=== PATIENT | female | born 1980 | race American Indian/Alaskan Native ===

== ENCOUNTER 2020-04-29 10:48 | Outpatient (CLI) | payer OTHER | END 2020-04-29 12:16 | disposition home or self-care (01) | LOC: NST 10:48 | PROVIDERS: ATTEND Specialist | DX: Z34.83 Encounter for supervision of other normal pregnancy, third trimester (principal) ==

== ENCOUNTER 2020-05-05 21:10 | Inpatient (IN) | payer OTHER ==
[~2020-05-05] VITALS: Ht 154.9 cm; Wt 2680.0 kg
[2020-05-05] MEDS ORDERED: CHILDREN'S ASPI81 MG PO (22:04)
[2020-05-05] MEDS ORDERED: IRON325 MG PO (22:04)
[2020-05-05] MEDS ORDERED: PRENATAL TABLE1 EAC1 PO (22:04)
== END 2020-05-09 16:45 | disposition home or self-care (01) | DRG 787 ==
LOC: LDR 21:10 → O/R 21:10 → OB/GYN 05-06 13:48
PROVIDERS: ADMIT Specialist; ATTEND Specialist
PROC: 4A1HXFZ Monitoring of Products of Conception, Cardiac Rhythm, External Approach (ICD-10-PCS; 2020-05-06)
PROC: 3E033VJ Introduction of Other Hormone into Peripheral Vein, Percutaneous Approach (ICD-10-PCS; 2020-05-06)
PROC: 3E0F7SF Introduction of Other Gas into Respiratory Tract, Via Natural or Artificial Opening (ICD-10-PCS; 2020-05-06)
PROC: 10D00Z1 Extraction of Products of Conception, Low, Open Approach (ICD-10-PCS; principal; 2020-05-06 07:00)
DX: O31.8X31 Other complications specific to multiple gestation, third trimester, fetus 1 (principal); O41.03X0 Oligohydramnios, third trimester, not applicable or unspecified; O76 Abnormality in fetal heart rate and rhythm complicating labor and delivery; O31.8X32 Other complications specific to multiple gestation, third trimester, fetus 2; O32.2XX2 Maternal care for transverse and oblique lie, fetus 2; O36.5932 Maternal care for other known or suspected poor fetal growth, third trimester, fetus 2; Z20.828 Contact with and (suspected) exposure to other viral communicable diseases; O30.043 Twin pregnancy, dichorionic/diamniotic, third trimester; Z3A.36 36 weeks gestation of pregnancy; Z37.2 Twins, both liveborn